=== PATIENT | female | born 1990 | race Caucasian/White ===

== ENCOUNTER 2023-10-04 14:18 | Emergency (ER) | payer BC ==
[~2023-10-04] VITALS: Ht 170.2 cm; Wt 204.1 kg
[~2023-10-04 14:18] MED LIST: ACEBUTCAFT PO; AZIT250 PO; CLIN300 PO; FANAPT4 MG PO; HYDACE5 PO; HYDHCL25 PO; HYDR1TAB94 PO; LEVFLO500 PO; LORA.5 PO; NAPR250 PO; NEXPLANON68 MG SQ; OLAN10 PO; PARO20 PO; Percocet 5-3251 EACH PO; RXHYDACE PO; RXOXYACE PO; [UNRECOGNIZED DRUG - OTHER]
[2023-10-04] MEDS ORDERED: OxyCODONE 5 mg/Acetamin 325 mg TABLET PO ONE (15:05)
[2023-10-04] MEDS ORDERED: OXYC5 PO (15:21)
[2023-10-04 15:25] VITALS: BP 149/110
== END 2023-10-04 15:35 | disposition home or self-care (01) ==
LOC: ER 14:18
DX: S89.91XA Unspecified injury of right lower leg, initial encounter (principal); X58.XXXA Exposure to other specified factors, initial encounter; Z88.0 Allergy status to penicillin; Z88.1 Allergy status to other antibiotic agents
CPT/HCPCS: 73562-RT; 99284-25; A9270

== ENCOUNTER → 2023-11-20 | Outpatient (CLI) | payer BC ==
[~2023-11-20] MED LIST changes: +OXYC5 PO
[2023-11-21 15:35] LABS: Percent Saturation 12.5 % (15.0-50.0)
== END ==
LOC: LAB SHORT 13:33
PROVIDERS: Internal Medicine Hematology & Oncology
DX: D50.9 Iron deficiency anemia, unspecified (principal)
CPT/HCPCS: 82728; 83540; 83550

== ENCOUNTER 2024-07-22 12:29 | Emergency (ER) | payer BC ==
[~2024-07-22] VITALS: Ht 162.6 cm; Wt 182.8 kg
[2024-07-22] MEDS ORDERED: Ketorolac Tromethamine 15mg Vial IV ONE (13:30)
[2024-07-22] MEDS ORDERED: NS 1,000 ML IV SCH (13:30)
[2024-07-22] MEDS ORDERED: Ondansetron HCl 2 MG / ML 2ML Vial IV ONE ×2 (13:30→17:40)
[2024-07-22 13:51] LABS: BASOPHILS ABSOLUTE AUTO 0.05 K/mm3 (0.00-0.23); BASOPHILS PERCENT AUTO 0 % (0-2); EOSINOPHILS ABSOLUTE AUTO 0.02 K/mm3 (0.00-0.68); EOSINOPHILS PERCENT AUTO 0 % (0-6); Hematocrit 48.5 % (33.0-51.0); Hemoglobin 16.2 g/dL (11.5-16.0); IMMATURE GRAN ABSOLUTE AUTO 0.06 K/mm3 (0.00-0.10); IMMATURE GRAN PERCENT AUTO 0 % (0-1); LYMPHOCYTES ABSOLUTE AUTO 0.52 K/mm3 (0.84-5.20); LYMPHOCYTES PERCENT AUTO 4 % (21-46); MONOCYTES ABSOLUTE AUTO 0.37 K/mm3 (0.16-1.47); MONOCYTES PERCENT AUTO 3 % (4-13); Mean Corpuscular HGB 28.4 pg (26.0-34.0); Mean Corpuscular HGB Conc 33.4 g/dL (31.5-36.5); Mean Corpuscular Volume 85 fL (80-100); Mean Platelet Volume 10.3 fL (9.1-12.4); NEUTROPHILS ABSOLUTE AUTO 13.71 K/mm3 (1.96-9.15); NEUTROPHILS PERCENT AUTO 93 % (41-73); Platelet Count 286 K/mm3 (150-400); RDW Coefficient Variation 14.1 % (11.7-14.2); RDW Standard Deviation 43.7 fL (35.1-46.3); White Blood Cell Count 14.73 K/mm3 (4.00-11.30)
[2024-07-22 14:29] LABS: Beta HCG, Quantitative, Serum <1 mIU/mL (0-3)
[2024-07-22 14:30] LABS: Alanine Aminotransfer (ALT/SGP 23 U/L (12-78); Albumin, Blood 3.9 g/dL (3.4-5.0); Alk Phos 75 U/L (50-136); Anion Gap 9 mmol/L (3-11); Aspartate Aminotrans (AST/SGOT 9 U/L (12-37); Bilirubin, Total 0.5 mg/dL (0.1-1.0); Blood Urea Nitrogen 13 mg/dL (8-24); CO2, Blood 23 mmol/L (21-32); Calcium, Blood 9.3 mg/dL (8.5-10.1); Chloride, Blood 108 mmol/L (98-108); Creatinine, Blood 0.77 mg/dL (0.40-1.00); Globulin, Blood 4.1 g/dL (2.2-4.0); Glomerular Filtration Rate 104 (60-); Glucose, Blood 122 mg/dL (70-99); Potassium, Blood 4.2 mmol/L (3.5-5.5); Sodium, Blood 136 mmol/L (136-145)
[2024-07-22] MEDS ORDERED: Acetaminophen 325 MG TABLET PO ONE (14:55)
[2024-07-22 15:17] LABS: Source, Urine Clean Catch
[2024-07-22 15:20] LABS: Appearance, Urine Clear (Clear); Bilirubin, Urine Neg (Neg); Blood, Urine 2+ (Neg); Color, Urine Amber (P-Yellow); Glucose Qualitative, Urine Neg (Neg); Ketones, Urine Neg (Neg); Leukocyte Esterase, Urine Neg (Neg); Nitrite, Urine Neg (Neg); Protein, Urine 2+ (Neg); Specific Gravity, Urine 1.005 (1.003-1.022); Urobilinogen, Urine NORM (Normal)
[2024-07-22 15:34] LABS: Bacteria Mod /hpf; Squamous Epithelial Cells Few /hpf (Few)
[2024-07-22] MEDS ORDERED: D5W-LR 1,000 ML IV SCH (16:00)
[2024-07-22] MEDS ORDERED: DICY20 PO (16:23)
[2024-07-22] MEDS ORDERED: ONDA4ODT MM (16:23)
[2024-07-22 17:40] VITALS: BP 127/54
[2024-07-22] MEDS ORDERED: OxyCODONE 5 mg/Acetamin 325 mg TABLET PO ONE (17:40)
== END 2024-07-22 17:56 | disposition home or self-care (01) ==
LOC: ER 12:29
PROVIDERS: Student in an Organized Health Care Education/Training Program
DX: K52.9 Noninfective gastroenteritis and colitis, unspecified (principal); Z87.891 Personal history of nicotine dependence; Z88.0 Allergy status to penicillin; Z88.1 Allergy status to other antibiotic agents
CPT/HCPCS: 74177; 80053; 81001; 83690; 84702; 85025; 87077; 87086; 87186; 96361; 96374-59; 96375; 96376; 99284-25; A9270; J1885; J2405; J7030; J7121; Q9967